=== PATIENT | female | born 1980 | race Caucasian/White ===

== ENCOUNTER 2024-07-06 02:25 | Emergency (ER) | payer OTHER ==
[~2024-07-06] VITALS: Ht 149.9 cm; Wt 68.0 kg
[2024-07-06 03:06] LABS: Basophils # (auto) 0.1 10 ^3/uL (0-0.2); Basophils % (auto) 0.5 % (0.0-2.0); Eosinophils # (auto) 0.1 10 ^3/uL (0-0.8); Hematocrit 39.3 % (36.0-46.0); Hemoglobin 13.3 g/dL (12.2-16.2); Lymphocytes % (auto) 19.3 % (10.0-50.0); Mean Corpuscular Hemoglobin 30.5 pg (28.0-32.0); Mean Corpuscular Volume 89.8 fL (80.0-100.0); Monocytes # (auto) 0.5 10 ^3/uL (0-1.3); Monocytes % (auto) 4.5 % (0.0-12.0); Neutrophils # (auto) 7.8 10 ^3/uL (1.6-8.6); Neutrophils % (auto) 74.7 % (37.0-80.0); Platelet Count (auto) 428 10^3/uL (140-450); Red Blood Cells 4.38 10^6/uL (4.0-5.20); Red Cell Distribution Width 13.3 % (11.8-14.3); White Blood Cell 10.4 10^3/uL (4.4-10.8)
[2024-07-06 03:16] LABS: Anion Gap 10 (5-15); Carbon Dioxide 22 mmol/L (20-31); Chloride 107 mmol/L (98-107); Sodium 139 mmol/L (136-145)
[2024-07-06 03:17] LABS: Calcium 9.7 mg/dL (8.7-10.4)
[2024-07-06 03:22] LABS: Blood Urea Nitrogen 16 mg/dL (9-23); Lipase 44 U/L (12-53)
[2024-07-06 03:23] LABS: Glucose 107 mg/dL (74-106)
[2024-07-06] MEDS: SODIUM CHLORIDE 0.9% 1,000 ML IV ONE (03:45)
--- NOTE | 2024-07-06 03:50 | DVH ---
Exam: CT CT AB PEL WO CON-NO ORAL OR IV History: LEFT FLANK PAIN Comparison Study: None available at time of dictation. TECHNIQUE: Multidetector CT of the abdomen was performed from lung bases to pubic symphysis. Imaging was performed without IV contrast. Axial, coronal and sagittal multiplanar reformats were obtained fr om the axial data set by the technologist. Radiation optimization: All CT scans at this facility use at least one of these dose optimization lory hniques: automated exposure control mA and/or kV adjustment per patient size (includes targeted exam s where dose is matched to clinical indication) or iterative reconstruction. Radiation Dose Information: CT Dose: CTDI volume is 9.09 mGy. Dose-length product is 477.63 mGy*cm FINDINGS: Evaluation of solid organs is limited due to lack of intravenous contrast use. Findings: Imaged portions of the lung bases appear unremarkable. 2.0 cm left hepatic lobe cyst. Gallbladder, sp shaka, pancreas and adrenal glands appear unremarkable. There is mild left hydronephrosis and hydroure ter secondary to 0.4 cm calculus at the left ureterovesicular junction. The right kidney appears unre markable. No additional renal calculi. No evidence of bowel obstruction or focal bowel wall thickening. The appendix appears normal. Uterus is anteverted. No free fluid, free air, or adenopathy. No suspicious osseous lesion. IMPRESSION: 1. 0.4 cm obstructing calculus of the right ureterovesicular junction resulting in mild hydronephrosi s and hydroureter. HS:Y
--- NOTE | 2024-07-06 03:52 | ED.PDOC ---
GI ASSESSMENT HPI Comments 43-YEAR-OLD FEMALE PRESENTS TO ER WITH COMPLAINTS OF ABDOMINAL PAIN X ONE DAY. PATIENT REPORTS SHE STARTED EXPERIENCING LEFT UPPER QUADRANT ABDOMINAL PAIN WITH ASSOCIATED NAUSEA/VOMITING THAT STARTED AT 10:00 P.M. PRIOR TO ARRIVAL TO ER. SHE RATES HER CURRENT PAIN A 10/10 TO LEFT UPPER QUADRANT OF ABDOMEN WITH RADIATION TOWARDS LEFT FLANK. DENIES USE OF MEDICATIONS FOR CURRENT SYMPTOMS. PATIENT PRESENTS TO ER AMBULATORY ON ARRIVAL, IN MILD DISTRESS, WITH VITALS STABLE. DENIES FEVER, BODY ACHES, CHILLS, SHORTNESS OF BREATH, CHEST PAIN, HEMATEMESIS, TRAUMA/INJURY, FLANK PAIN, CHANGES IN URINATION/BM OR ANY FURTHER SYMPTOMS/COMPLAINTS Chief Complaint: Flank Pain Time Seen by MD: 02:46 Primary Care Provider: ALEXANDR Reviewed Notes: Nurses Notes, Medications, Allergies Allergies: Coded Allergies: NO KNOWN ALLERGIES (Unverified , 07/06/24) Home Meds Active Scripts Acetaminophen W/ Codeine (Tylenol W/Cod #3) 1 Tab Tb, 1 TAB PO Q6HR, #10 TAB 0 Refills Prov:SANJAY JAFFE 07/06/24 Ondansetron Odt 4MG Tab (ZOFRAN PO) 4 Mg Tb, 4 MG PO Q8HPRN, #14 TAB 0 Refills ODT TAB-DISSOLVE IN MOUTH, THEN SWALLOW Prov:SANJAY JAFFE 07/06/24 Tamsulosin Hcl (Flomax) 0.4 Mg Cap, 1 CAP PO DAILY for 6 Days, #6 CAP 0 Refills Prov:SANJAY JAFFE 07/06/24 Information Source: Patient Mode of Arrival: Ambulatory Past Medical History PAST MEDICAL HISTORY: Denies Surgical History: Denies all surgeries W[employer] History: No Pertinent WIRE [employer] SHADE [employer]KER History Family History Family History: Unknown Social History Smoker: Non-Smoker Alcohol: Denies ETOH Use Drugs: Denies Drug Use Lives In: Home Constitutional: denies: chills, diaphoresis, fatigue, fever, malaise, sweats, w eakness, others EENTM: denies: blurred vision, double vision, ear bleeding, ear discharge, ear drainage, ear pain, ear ringing, eye pain, eye redness, hearing loss, mouth pain, mouth swelling, nasal discharge, nose bleeding, nose congestion, nose pain, photophobia, tearing, throat pain, throat swelling, voice changes, others Respiratory: denies: cough, hemoptysis, orthopnea, SOB at rest, shortness of breath, SOB with excertion, stridor, wheezing, others Cardiovascular: denies: chest pain, dizzy spells, diaphoresis, Dyspnea on exertion, edema, irregular heart beat, left arm pain, lightheadedness, palpitations, PND, syncope, others Gastrointestinal: reports: others ( STATED IN HPI) Genitourinary: denies: abnormal vagina bleeding, burning, dyspareunia, dysuria, flank pain, frequency, hematuria, incontinence, pain, , vagina discharge, urgency, others Neurological: denies: dizziness, fainting, headache, left sided numbness, left sided weakness, numbness, paresthesia, pre-existing deficit, right sided numbness, right sided weakness, seizure, speech problems, tingling, tremors, weakness, others Musculoskeletal: denies: back pain, gout, joint pain, joint swelling, muscle pain, muscle stiffness, neck pain, others Integumetry: denies: bruises, change in color, change in hair/nails, dryness, laceration, lesions, lumps, rash, wounds, others Allergic/Immunocompromised: denies: Difficulty Healing, Frequent Infections, Hives, Itching, others Hematologic/Lymphatic: denies: anemia, blood clots, easy bleeding, easy bruising, swollen glands, others Endocrine: denies: excessive hunger, excessive sweating, excessive thirst, excessive urination, flushing, intolerance to cold, intolerance to heat, unexplained weight gain, unexplained weight loss, others Psychiatric: denies: anxiety, bipolar disorder, depression, hopeless, panic disorder, schizophrenia, sleepless, suicidal, others Physical Exam General Appearance: No Apparent Distress HEENT: PERRL/EOMI Neck: Full Range of Motion, Non-Tender, Normal Respiratory: Chest Non-Tender, Lungs Clear, No Accessory Muscle Use, No Respiratory Distress, Normal Breath Sounds Cardiovascular: No Murmur, No Gallop, Regular Rate/Rhythm Breast Exam: Deferred Gastrointestinal: LUQ (TTP TO LEFT UPPER QUADRANT OF ABDOMEN NOTED. NO REBOUND/GUARDING NOTED. NO HERNIA/MASSES/SKIN CHANGES APPRECIATED. NO OTHER TENDERNESS TO ABDOMEN NOTED), No Organomegaly, No Pulsatile Mass, Normal Bowel Sounds, Soft Genitalia: Deferred Pelvic: Deferred Rectal: Deferred Extremities: Normal capillary refill, Normal range of motion Musculoskeletal : Extremity Location: Back (SLIGHT TTP TO LEFT FLANK NOTED. NO CVA TENDERNESS NOTED BILATERALLY) Neurologic: Alert, pulp grinder and blender II-XII nml as Tested, No Motor Deficits, Normal Affect, Normal Mood, No Sensory Deficits Cerebellar Function: Normal Reflexes: Normal Skin: Dry, Normal Color, Warm Peripheral Pulses: 2+ Radial (R), 2+ Radial (L), 2+ Brachial (R), 2+ Brachial (L) Lymphatic: No Adenopathy Was a procedure done? Was a procedure done?: No Sedation Sedation?: No GI differential Dx Differential Diagnosis: GI hemorrhage, Ischemic Bowel, Trauma intraabdominal, Urinary Obstruction, Renal Failure, Other (Pyelonephritis) X-Ray, Labs, Meds, VS Vital Signs Date Time Temp Pulse Resp B/P (MAP) Pulse Ox O2 Delivery O2 Flow Rate FiO2 07/06/24 04:11 69 17 120/67 07/06/24 02:25 98.0 69 15 132/70 (90) 100 98.0 07/06/24 02:25 98.0 69 18 132/72 (92) 100 07/06/24 02:25 Room Air Lab Test 07/06/24 03:10 07/06/24 02:50 Range/Units Urine Color Yellow Yellow Urine Clarity Turbid H Clear Urine pH 7.0 5.0-9.0 Urine Specific [place] 1.024 1.001-1.035 Urine Protein Trace H Negative Urine Ketones Negative Negative Urine Blood 3+ H Negative /uL Urine Nitrite Negative Negative Urine Bilirubin Negative Negative Urine Urobilinogen Normal Negative mg/dL Urine Leukocyte Esterase Trace Negative /uL Urine RBC 136 0 - 4 /hpf Urine Microscopic WBC 2 0-5 /HPF Urine Squamous Epithelial Cells Mod <5 /hpf Urine Bacteria None seen None Seen /hpf Urine Mucus Few None Seen Urine Glucose Normal Normal mg/dL White Blood Count 10.4 4.4-10.8 10^3/uL Red Blood Count 4.38 4.0-5.20 10^6/uL Hemoglobin 13.3 12.2-16.2 g/dL Hematocrit 39.3 36.0-46.0 % Mean Corpuscular Volume 89.8 80.0-100.0 fL Mean Corpuscular Hemoglobin 30.5 28.0-32.0 pg Mean Corpuscular Hemoglobin Concent 34.0 32.0-36.0 g/dL Red Cell Distribution Width 13.3 11.8-14.3 % Platelet Count 428 140-450 10^3/uL Mean Platelet Volume 6.4 L 6.9-10.8 fL Neutrophils (%) (Auto) 74.7 37.0-80.0 % Lymphocytes (%) (Auto) 19.3 10.0-50.0 % Monocytes (%) (Auto) 4.5 0.0-12.0 % Eosinophils (%) (Auto) 1.0 0.0-7.0 % Basophils (%) (Auto) 0.5 0.0-2.0 % Neutrophils # (Auto) 7.8 1.6-8.6 10 ^3/uL Lymphocytes # (Auto) 2.0 0.4-5.4 10 ^3/uL Monocytes # (Auto) 0.5 0-1.3 10 ^3/uL Eosinophils # (Auto) 0.1 0-0.8 10 ^3/uL Basophils # (Auto) 0.1 0-0.2 10 ^3/uL Nucleated Red Blood Cells 0.0 % Sodium Level 139 136-145 mmol/L Potassium Level 4.0 3.5-5.1 mmol/L Chloride Level 107 98-107 mmol/L Carbon Dioxide Level 22 20-31 mmol/L Anion Gap 10 5-15 Blood Urea Nitrogen 16 9-23 mg/dL Creatinine 0.84 0.550-1.02 mg/dL Glomerular Filtration Rate Calc 88 >90 mL/min BUN/Creatinine Ratio 19.0 10.0-20.0 Serum Glucose 107 H 74-106 mg/dL Calcium Level 9.7 8.7-10.4 mg/dL Lipase 44 12-53 U/L Current Medications Medications (Trade) Dose Ordered Sig/Courtney Route Start Time Stop Time Status Last Admin Morphine Sulfate 2 mg ONCE ONCE IM 07/06/24 03:45 07/06/24 03:46 DC 07/06/24 04:11 Ondansetron HCl (Zofran Po) 4 mg ONCE ONCE PO 07/06/24 03:45 07/06/24 03:46 DC 07/06/24 03:58 PATIENT: YOEL SUE ANNACCT: [id number]: [id number] : 1980 LOC: ER ROOM / BED: / AGE / SEX: 44 / F ADM STATUS: REG ER SERVICE [id number] ORDERING PHYSICIAN: SANJAY JAFFE PROCEDURE(s): ABPL - CT AB PEL WO CON-NO ORAL OR IV REASON: LEFT FLANK PAIN ORDER NUMBER(s): [id number], ACCESSION NUMBER(s): [id number] Exam: CT CT AB PEL WO CON-NO ORAL OR IV History: LEFT FLANK PAIN Comparison Study: None available at time of dictation. TECHNIQUE: Multidetector CT of the abdomen was performed from lung bases to pubic symphysis. Imaging was performed without IV contrast. Axial, coronal and sagittal multiplanar reformats were obtained from the axial data set by the technologist. Radiation optimization: All CT scans at this facility use at least one of these dose optimization techniques: automated exposure control mA and/or kV adjustment per patient size (includes targeted exams where dose is matched to clinical indication) or iterative reconstruction. Radiation Dose Information: CT Dose: CTDI volume is 9.09 mGy. Dose-length product is 477.63 mGy*cm FINDINGS: Evaluation of solid organs is limited due to lack of intravenous contrast use. Findings: Imaged portions of the lung bases appear unremarkable. 2.0 cm left hepatic lobe cyst. Gallbladder, spleen, pancreas and adrenal glands appear unremarkable. There is mild left hydronephrosis and hydroureter secondary to 0.4 cm calculus at the left ureterovesicular junction. The right kidney appears unremarkable. No additional renal calculi. No evidence of bowel obstruction or focal bowel wall thickening. The appendix appears normal. Uterus is anteverted. No free fluid, free air, or adenopathy. No suspicious osseous lesion. IMPRESSION: 1. 0.4 cm obstructing calculus of the right ureterovesicular junction resulting in mild hydronephrosis and hydroureter. HS:Y ATED BY: GERMAN FLORES MD DICTATED DATE/TIME: 07/06/24349 SIGNED BY: GERMAN FLORES MD SIGNED DATE/TIME: 07/06/24349 CC: CBC REVIEWED WITHOUT ANY SIGNIFICANT ABNORMALITIES BMP REVIEWED WITHOUT ANY SIGNIFICANT ABNORMALITIES LIPASE REVIEWED-NORMAL URINALYSIS REVIEWED-URINE LEUKOCYTE ESTERASE TRACE, URINE BLOOD 3+, URINE NI TRITES NEGATIVE HEP-LOCK IV ORDERED NS 1 L IV ORDERED ROCEPHIN 1 G IV ORDERED MORPHINE 2 MG IM ORDERED ZOFRAN 4 MG P.O. ORDERED FLOMAX .4 MG P.O. ORDERED PATIENT REPORTED IMPROVEMENT IN SYMPTOMS, TOLERATING P.O. INTAKE WELL, PAIN CONTROLLED AND NON-TOXIC APPEARING/IN NO DISTRESS PRIOR TO DISCHARGE ADVISED TO DRINK PLENTY OF FLUIDS ADVISED TO FOLLOW UP WITH PCP AND UROLOGIST IN 1-2 DAYS PATIENT VERBALIZED UNDERSTANDING AND AGREEABLE WITH CURRENT PLAN OF CARE ADVISED TO RETURN TO ER IMMEDIATELY IF SYMPTOMS WORSEN Images Reviewed?: Images reviewed and evaluated by me Time of 1ST Reevaluation: 03:50 Reevaluation 1ST: N/A Time of 2ND Reevaluation: 04:10 Reevaluation 2ND: Improved Patient Education/Counseling: Diagnosis, Treatment, Prognosis, Need For Follow Up Family Education/Counseling: No Family Present Departure 1 Departure Time of Disposition: 04:12 Impression: Primary Impression: Left nephrolithiasis Additional Impression: UTI (urinary tract infection) Qualified Codes: N30.01 - Acute cystitis with hematuria Disposition: HOME / SELF CARE / HOMELESS Condition: Stable e-Prescriptions Ciprofloxacin Hcl (Ciprofloxacin Hcl) 500 Mg Tab 1 TAB PO BID for 7 Days, #14 TAB 0 Refills Prov: SANJAY JAFFE 07/06/24 Acetaminophen W/ Codeine (Tylenol W/Cod #3) 1 Tab Tb 1 TAB PO Q6HR, #10 TAB 0 Refills Prov: SANJAY JAFFE 07/06/24 Ondansetron Odt 4MG Tab (ZOFRAN PO) 4 Mg Tb 4 MG PO Q8HPRN, #14 TAB 0 Refills ODT TAB-DISSOLVE IN MOUTH, THEN SWALLOW Prov: SANJAY JAFFE 07/06/24 Tamsulosin Hcl (Flomax) 0.4 Mg Cap 1 CAP PO DAILY for 6 Days, #6 CAP 0 Refills Prov: SANJAY JAFFE 07/06/24 Discharged With: Friend Critical Care Note Critical Care Time?: No Stability Stability form required: No Heart Score Heart Score: Heart Score Response (Comments) Value History N/A 0 EKG N/A 0 Age N/A 0 Risk Factors N/A 0 Troponin N/A 0 Total 0 SANJAY JAFFE Jul 06, 2024 03:52
[2024-07-06] MEDS: ONDANSETRON ODT 4 MG TAB PO ONE (03:58)
[2024-07-06] MEDS: MORPHINE SULFATE INJ 2 MG/ml SYRG IM ONE (04:11)
[2024-07-06 04:13] LABS: Urine Bacteria None Seen /hpf (None Seen)
[2024-07-06 04:21] LABS: Urine Blood 3+ /uL (Negative); Urine Clarity Turbid (Clear); Urine Color Yellow (Yellow); Urine Mucus FEW (None Seen); Urine Protein, UAD TRACE (Negative); Urine Specific Gravity 1.024 (1.001-1.035); Urine Squamous Epithelial Cell MOD /hpf (<5); Urine Urobilinogen Normal (Negative); Urine WBC 2 /HPF (0-5)
[2024-07-06] MEDS ORDERED: ACE3T PO (04:23)
[2024-07-06] MEDS ORDERED: ZOFR4T PO (04:23)
[2024-07-06] MEDS ORDERED: TAMS-35 PO (04:23)
[2024-07-06] MEDS ORDERED: CIPR500T4 PO (04:26)
[2024-07-06] MEDS: TAMSULOSIN HYDROCHLORIDE 0.4 MG CAP PO ONE (04:56)
[2024-07-06] MEDS: cefTRIAXone 1GM/50ML D5W 50 ML IV ONE (04:56)
[2024-07-06 06:18] VITALS: BP 129/70; PULSE 72; RESP 14; TEMP 98.3; O2SAT 99
== END 2024-07-06 06:29 | disposition home or self-care (01) ==
LOC: ER 02:25
DX: N20.0 Calculus of kidney (principal); N39.0 Urinary tract infection, site not specified
CPT/HCPCS: 36415; 74176; 80048; 81001; 83690; 85025; 96361; 96365; 96372; 99285; J0696; J2270; J7030; Q0162